=== PATIENT | male | born 1945 | race Caucasian/White ===

== ENCOUNTER 2018-07-15 11:46 | Inpatient (IN) | payer MEDICARE, OTHER ==
[2018-07-15] MEDS: Ondansetron ODT 4 MG TAB SL PRN (13:43)
[2018-07-15] MEDS ORDERED: Acetaminophen 325 MG TAB PO PRN (14:58)
[2018-07-15] MEDS ORDERED: Zolpidem Tartrate 5 MG TAB PO PRN (14:58)
[2018-07-15] MEDS ORDERED: Dextrose 5% in Water 1,000 ML IV PRN (17:07)
[2018-07-15] MEDS ORDERED: Dextrose 50% Abboject 50 ML SYRINGE SLOW IVP PRN (17:07)
[2018-07-15] MEDS: Aspirin 81 mg Enteric Coated Tablet PO SCH (21:12)
[2018-07-15] MEDS: Ascorbic Acid 500 mg Chewable Tablet PO SCH (21:12)
[2018-07-15] MEDS: Carvedilol 12.5 MG TAB PO SCH (21:13)
[2018-07-15] MEDS: Famotidine 20 MG TAB PO SCH (21:13)
[2018-07-15] MEDS: Timolol 0.5% Ophth Soln 5 ml Bottle EA EYE SCH (21:16)
[2018-07-15] MEDS: Brimonidine Tartrate 0.2% Ophth Soln 5 ml Bottle EA EYE SCH (21:17)
[2018-07-16] MEDS: Carvedilol 12.5 MG TAB PO SCH ×2 (08:30→20:36)
[2018-07-16] MEDS: Amlodipine 5 MG TAB PO SCH (08:30)
[2018-07-16] MEDS: Losartan 25 MG TAB PO SCH (08:31)
[2018-07-16] MEDS: Brimonidine Tartrate 0.2% Ophth Soln 5 ml Bottle EA EYE SCH ×2 (08:32→20:36)
[2018-07-16] MEDS: Aspirin 81 mg Enteric Coated Tablet PO SCH ×2 (08:32→20:36)
[2018-07-16] MEDS: metFORMIN 500 MG TAB PO SCH (08:32)
[2018-07-16] MEDS: Timolol 0.5% Ophth Soln 5 ml Bottle EA EYE SCH ×2 (08:33→20:36)
[2018-07-16] MEDS: HYDROcodone/Acetaminophen 5/325 mg Tablet PO PRN ×2 (08:34→15:19)
[2018-07-16] MEDS ORDERED: Atorvastatin Calcium 10 MG TAB PO SCH (09:00)
[2018-07-16] MEDS: Famotidine 20 MG TAB PO SCH ×2 (10:39→10:40)
[2018-07-16] MEDS: Ascorbic Acid 500 mg Chewable Tablet PO SCH (20:36)
[2018-07-17] MEDS: HYDROcodone/Acetaminophen 5/325 mg Tablet PO PRN ×4 (01:39→23:24)
[2018-07-17] MEDS: Brimonidine Tartrate 0.2% Ophth Soln 5 ml Bottle EA EYE SCH ×2 (08:05→20:47)
[2018-07-17] MEDS: Amlodipine 5 MG TAB PO SCH (08:06)
[2018-07-17] MEDS: Aspirin 81 mg Enteric Coated Tablet PO SCH ×2 (08:06→20:47)
[2018-07-17] MEDS: Timolol 0.5% Ophth Soln 5 ml Bottle EA EYE SCH ×2 (08:07→20:47)
[2018-07-17] MEDS: metFORMIN 500 MG TAB PO SCH (08:07)
[2018-07-17] MEDS: Famotidine 20 MG TAB PO SCH (08:07)
[2018-07-17] MEDS: Losartan 25 MG TAB PO SCH (11:01)
[2018-07-17] MEDS: Carvedilol 12.5 MG TAB PO SCH (11:01)
[2018-07-17] MEDS: Ondansetron ODT 4 MG TAB SL PRN (12:51)
--- NOTE | 2018-07-17 12:59 | HP ---
PRIMARY CARE PHYSICIAN: Moose Del Castillo MD REASON FOR ADMISSION: For skilled rehabilitation at [facility], status post left total knee replacement. HISTORY OF PRESENT ILLNESS: Mr. Mitchell Ortiz is a 73-year-old male with a medical history of diabetes type 2, hypertension, hyperlipidemia, psoriatic arthritis, polycythemia, and degenerative joint disease. The patient came in for an elective total knee replacement on July 12, 2018. Procedure was done by Dr. Elizondo without complications. The patient immediately was admitted for medical management and physical therapy. The patient tolerated the procedure well. His pain was controlled with appropriate pain medications in the hospital. He does have diabetes and his sugars were also well managed. The patient was put on SCDs for DVT prophylaxis, but unfortunately this caused some skin irritation and this was changed to aspirin 81 mg twice a day. The patient was subsequently transferred to [facility] in [place] for skilled rehabilitation and continuation of physical therapy. Upon evaluation of the patient today, he denies any concerns. He states the drive was a little bit stressful and he did have some nausea when I was evaluating him. He states the pain is well controlled. He was given pain medicine prior to discharge from [facility] in [place]. The patient denies any abdominal pain. He denies any constipation since he had a bowel movement this morning. He denies any chest pain, dizziness, or shortness of breath. PAST MEDICAL HISTORY: 1. Diabetes type 2, on metformin. 2. Hypertension. 3. Hyperlipidemia. 4. Polycythemia, followed at a cancer center with intermittent phlebotomy. 5. Psoriatic arthritis. PAST SURGICAL HISTORY: 1. Laparoscopic cholecystectomy. 2. Left pinky toe surgery. 3. Cystoscopy of the bladder with biopsy. 4. Trigger finger release to the left hand. 5. Left first and second toe resection and repair due to trauma. SOCIAL HISTORY: The patient is . He has 4 children. His son and [id number] are very involved with the care. He lives with his daughter. He is a previous smoker, quit in 1990. He rarely uses alcohol and denies any illicit drug use. FAMILY HISTORY: Mother of breast cancer. Father of stroke. ALLERGIES: PENICILLIN, WHICH CAUSES RASH. CODE STATUS: The patient is a full code. MEDICATIONS: 1. Medrol 4 mg daily. 2. Amlodipine 2.5 daily. 3. Vitamin C 500 daily. 4. Aspirin 81 mg b.i.d. 5. Lipitor 10 mg daily. 6. Coreg 12.5 b.i.d. 7. Famotidine 10 mg daily. 8. Cozaar 50 mg daily. 9. Metformin 500 mg daily. 10. Timolol 0.5 ophthalmic b.i.d. 11. Brimonidine tartrate one drop in each eye b.i.d. REVIEW OF SYSTEMS: CONSTITUTIONAL: No fever or chills. No weight changes. EYES: No double vision or blurry vision. ENT: No congestion, drainage, or sore throat. CARDIOVASCULAR: No chest pain or palpitations. PULMONARY: No cough, wheezing, or shortness of breath. GASTROINTESTINAL: Complains of some nausea. No diarrhea, abdominal pain, or constipation. GENITOURINARY: No dysuria or hematuria. MUSCULOSKELETAL: Some arthritic pains to the left knee. SKIN: No rashes or lesions, but does have some superficial bruising and irritation from SCDs to the lower leg. NEUROLOGIC: No numbness, tingling, or focal weakness. PHYSICAL EXAMINATION: VITAL SIGNS: Temperature 97.9, pulse 84, respirations 18, blood pressure 108/70 , and O2 saturation 96% on room air. GENERAL: The patient is alert, awake, and oriented x3. Obese white male, very pleasant. HEENT: Pupils are round, equal, and reactive to light. Oropharynx is clear without lesions. Moist oral mucous membranes. NECK: Supple. No JVD. No thyroid nodules or enlargement. HEART: Regular rate and rhythm. No murmurs or rubs. LUNGS: Clear to auscultation bilaterally. No wheezing or crackles. ABDOMEN: Positive bowel sounds. Soft and nontender. Obese. EXTREMITIES: No clubbing or cyanosis. He has a dressing over his left knee all the way down to the mid left lower leg. Dressing is clean, dry, and intact. SKIN: Irritation and superficial bruises/excoriation like brasher to the left leg. Left leg with +1 edema. NEUROLOGIC: Intact sensation in all extremities. No droop. Good strength in all extremities. PSYCHIATRIC: Alert, awake, and oriented x3. Normal mood and affect. ASSESSMENT AND PLAN: This is a 73-year-old male with a history of hypertension, diabetes, status post left total knee arthroplasty, requiring skilled rehabilitation and inpatient physical therapy and rehabilitation. The patient has been admitted to [facility] for skilled rehabilitation and gait strengthening. We will consult Physical Therapy for strengthening in order to gain modified independence with gait and Occupational Therapy to help with activities of daily living. The patient will follow up with Dr. Elizondo, orthopedic surgeon. We will place the patient on aspirin b.i.d. for deep venous thrombosis prophylaxis. We will encourage ambulation with physical therapy. We will place the patient on Pepcid b.i.d. for gastrointestinal prophylaxis. We will treat pain with [place] as needed. We will give the patient Zofran sublingual for nausea. We will resume the patient's home medications. ESTIMATED LENGTH OF STAY: 2 to 3 weeks. DISPOSITION: Home. Job ID: [id number] [facility] [place] [facility]
[2018-07-17] MEDS: Ascorbic Acid 500 mg Chewable Tablet PO SCH (20:46)
[2018-07-17] MEDS: Atorvastatin Calcium 10 MG TAB PO SCH (20:47)
[2018-07-18] MEDS: HYDROcodone/Acetaminophen 5/325 mg Tablet PO PRN ×3 (09:32→21:22)
[2018-07-18] MEDS: Famotidine 20 MG TAB PO SCH (09:33)
[2018-07-18] MEDS: Timolol 0.5% Ophth Soln 5 ml Bottle EA EYE SCH ×2 (09:33→21:22)
[2018-07-18] MEDS: Brimonidine Tartrate 0.2% Ophth Soln 5 ml Bottle EA EYE SCH ×2 (09:33→21:20)
[2018-07-18] MEDS: metFORMIN 500 MG TAB PO SCH (09:33)
[2018-07-18] MEDS: Aspirin 81 mg Enteric Coated Tablet PO SCH ×2 (09:33→21:21)
[2018-07-18] MEDS: Ascorbic Acid 500 mg Chewable Tablet PO SCH (21:21)
[2018-07-18] MEDS: Atorvastatin Calcium 10 MG TAB PO SCH (21:21)
[2018-07-18] MEDS: Carvedilol 12.5 MG TAB PO SCH (21:21)
[2018-07-19] MEDS: metFORMIN 500 MG TAB PO SCH (08:49)
[2018-07-19] MEDS: Amlodipine 5 MG TAB PO SCH (08:50)
[2018-07-19] MEDS: Losartan 25 MG TAB PO SCH (08:50)
[2018-07-19] MEDS: Aspirin 81 mg Enteric Coated Tablet PO SCH ×2 (08:50→20:39)
[2018-07-19] MEDS: Famotidine 20 MG TAB PO SCH (08:50)
[2018-07-19] MEDS: Brimonidine Tartrate 0.2% Ophth Soln 5 ml Bottle EA EYE SCH ×2 (08:51→20:40)
[2018-07-19] MEDS: Timolol 0.5% Ophth Soln 5 ml Bottle EA EYE SCH ×2 (08:51→20:40)
[2018-07-19] MEDS: Carvedilol 12.5 MG TAB PO SCH ×2 (08:51→20:40)
[2018-07-19] MEDS: HYDROcodone/Acetaminophen 5/325 mg Tablet PO PRN ×2 (13:26→19:11)
[2018-07-19] MEDS: Ascorbic Acid 500 mg Chewable Tablet PO SCH (20:39)
[2018-07-19] MEDS: Atorvastatin Calcium 10 MG TAB PO SCH (20:40)
[2018-07-20] MEDS: HYDROcodone/Acetaminophen 5/325 mg Tablet PO PRN ×4 (01:46→19:52)
[2018-07-20] MEDS: Senokot S 8.6-50 MG TAB PO PRN ×2 (01:49→19:53)
[2018-07-20] MEDS: metFORMIN 500 MG TAB PO SCH (08:30)
[2018-07-20] MEDS: Brimonidine Tartrate 0.2% Ophth Soln 5 ml Bottle EA EYE SCH ×2 (08:30→20:46)
[2018-07-20] MEDS: Carvedilol 12.5 MG TAB PO SCH ×2 (08:30→20:46)
[2018-07-20] MEDS: Timolol 0.5% Ophth Soln 5 ml Bottle EA EYE SCH ×2 (08:31→20:46)
[2018-07-20] MEDS: Famotidine 20 MG TAB PO SCH (08:31)
[2018-07-20] MEDS: Aspirin 81 mg Enteric Coated Tablet PO SCH ×2 (08:32→20:46)
[2018-07-20] MEDS: Amlodipine 5 MG TAB PO SCH (08:37)
[2018-07-20] MEDS: Losartan 25 MG TAB PO SCH (08:38)
[2018-07-20] MEDS: Atorvastatin Calcium 10 MG TAB PO SCH (20:46)
[2018-07-20] MEDS: Ascorbic Acid 500 mg Chewable Tablet PO SCH (20:46)
[2018-07-21] MEDS: metFORMIN 500 MG TAB PO SCH (07:41)
[2018-07-21] MEDS: HYDROcodone/Acetaminophen 5/325 mg Tablet PO PRN ×2 (07:41→13:06)
[2018-07-21] MEDS: Carvedilol 12.5 MG TAB PO SCH ×2 (07:41→20:21)
[2018-07-21] MEDS: Aspirin 81 mg Enteric Coated Tablet PO SCH ×2 (07:42→20:21)
[2018-07-21] MEDS: Timolol 0.5% Ophth Soln 5 ml Bottle EA EYE SCH ×2 (07:42→20:21)
[2018-07-21] MEDS: Brimonidine Tartrate 0.2% Ophth Soln 5 ml Bottle EA EYE SCH ×2 (07:42→20:21)
[2018-07-21] MEDS: Famotidine 20 MG TAB PO SCH (07:42)
[2018-07-21] MEDS: Ondansetron ODT 4 MG TAB SL PRN (13:07)
[2018-07-21] MEDS: Atorvastatin Calcium 10 MG TAB PO SCH (20:21)
[2018-07-21] MEDS: Ascorbic Acid 500 mg Chewable Tablet PO SCH (20:21)
[2018-07-22] MEDS: Famotidine 20 MG TAB PO SCH (09:04)
[2018-07-22] MEDS: Timolol 0.5% Ophth Soln 5 ml Bottle EA EYE SCH ×2 (09:04→20:12)
[2018-07-22] MEDS: Brimonidine Tartrate 0.2% Ophth Soln 5 ml Bottle EA EYE SCH ×2 (09:04→20:12)
[2018-07-22] MEDS: Carvedilol 12.5 MG TAB PO SCH ×2 (09:04→20:12)
[2018-07-22] MEDS: Aspirin 81 mg Enteric Coated Tablet PO SCH ×2 (09:04→20:12)
[2018-07-22] MEDS: metFORMIN 500 MG TAB PO SCH (09:04)
[2018-07-22] MEDS: HYDROcodone/Acetaminophen 5/325 mg Tablet PO PRN ×2 (09:10→19:19)
[2018-07-22] MEDS ORDERED: Acetaminophen 325 MG TAB PO PRN (10:43)
[2018-07-22] MEDS: Atorvastatin Calcium 10 MG TAB PO SCH (20:12)
[2018-07-22] MEDS: Ascorbic Acid 500 mg Chewable Tablet PO SCH (20:12)
[2018-07-22] MEDS: Senokot S 8.6-50 MG TAB PO PRN (20:18)
[2018-07-23] MEDS: HYDROcodone/Acetaminophen 5/325 mg Tablet PO PRN ×2 (05:28→17:33)
[2018-07-23] MEDS: Famotidine 20 MG TAB PO SCH (08:26)
[2018-07-23] MEDS: Carvedilol 12.5 MG TAB PO SCH ×2 (08:26→20:39)
[2018-07-23] MEDS: Aspirin 81 mg Enteric Coated Tablet PO SCH ×2 (08:26→20:39)
[2018-07-23] MEDS: Brimonidine Tartrate 0.2% Ophth Soln 5 ml Bottle EA EYE SCH ×2 (08:27→20:39)
[2018-07-23] MEDS: metFORMIN 500 MG TAB PO SCH (08:27)
[2018-07-23] MEDS: Timolol 0.5% Ophth Soln 5 ml Bottle EA EYE SCH ×2 (08:27→20:39)
[2018-07-23] MEDS: Senokot S 8.6-50 MG TAB PO PRN (20:39)
[2018-07-23] MEDS: Atorvastatin Calcium 10 MG TAB PO SCH (20:39)
[2018-07-23] MEDS: Ascorbic Acid 500 mg Chewable Tablet PO SCH (20:39)
[2018-07-24] MEDS ORDERED: HYDROcodone/Acetaminophen 5/325 mg Tablet PO PRN (03:11)
[2018-07-24] MEDS: Brimonidine Tartrate 0.2% Ophth Soln 5 ml Bottle EA EYE SCH ×2 (08:34→20:48)
[2018-07-24] MEDS: Timolol 0.5% Ophth Soln 5 ml Bottle EA EYE SCH ×2 (08:35→20:48)
[2018-07-24] MEDS: HYDROcodone/Acetaminophen 5/325 mg Tablet PO PRN ×2 (08:35→20:47)
[2018-07-24] MEDS: metFORMIN 500 MG TAB PO SCH (08:36)
[2018-07-24] MEDS: Senokot S 8.6-50 MG TAB PO PRN ×2 (08:36→20:47)
[2018-07-24] MEDS: Aspirin 81 mg Enteric Coated Tablet PO SCH ×2 (08:36→20:49)
[2018-07-24] MEDS: Famotidine 20 MG TAB PO SCH (08:36)
[2018-07-24] MEDS: Carvedilol 12.5 MG TAB PO SCH ×2 (08:36→20:49)
[2018-07-24] MEDS: Bisacodyl 5 MG TAB PO PRN (15:06)
[2018-07-24 19:05] VITALS: BMI 33.3
[2018-07-24] MEDS: Atorvastatin Calcium 10 MG TAB PO SCH (20:49)
[2018-07-24] MEDS: Ascorbic Acid 500 mg Chewable Tablet PO SCH (20:49)
[2018-07-25] MEDS: HYDROcodone/Acetaminophen 5/325 mg Tablet PO PRN ×2 (07:39→21:15)
[2018-07-25] MEDS: Brimonidine Tartrate 0.2% Ophth Soln 5 ml Bottle EA EYE SCH ×2 (08:17→21:07)
[2018-07-25] MEDS: metFORMIN 500 MG TAB PO SCH (08:18)
[2018-07-25] MEDS: Aspirin 81 mg Enteric Coated Tablet PO SCH ×2 (08:19→21:07)
[2018-07-25] MEDS: Timolol 0.5% Ophth Soln 5 ml Bottle EA EYE SCH ×2 (08:19→21:08)
[2018-07-25] MEDS: Famotidine 20 MG TAB PO SCH (08:19)
[2018-07-25] MEDS: Carvedilol 12.5 MG TAB PO SCH ×2 (08:19→21:07)
[2018-07-25] MEDS: Bisacodyl 5 MG TAB PO PRN (08:23)
[2018-07-25] MEDS: Ascorbic Acid 500 mg Chewable Tablet PO SCH (21:06)
[2018-07-25] MEDS: Atorvastatin Calcium 10 MG TAB PO SCH (21:07)
[2018-07-26] MEDS: Timolol 0.5% Ophth Soln 5 ml Bottle EA EYE SCH ×2 (08:13→20:43)
[2018-07-26] MEDS: Aspirin 81 mg Enteric Coated Tablet PO SCH ×2 (08:13→20:42)
[2018-07-26] MEDS: Famotidine 20 MG TAB PO SCH (08:13)
[2018-07-26] MEDS: Carvedilol 12.5 MG TAB PO SCH ×2 (08:13→20:42)
[2018-07-26] MEDS: Brimonidine Tartrate 0.2% Ophth Soln 5 ml Bottle EA EYE SCH ×2 (08:13→20:43)
[2018-07-26] MEDS: metFORMIN 500 MG TAB PO SCH (08:13)
[2018-07-26] MEDS: HYDROcodone/Acetaminophen 5/325 mg Tablet PO PRN (12:54)
[2018-07-26] MEDS: Atorvastatin Calcium 10 MG TAB PO SCH (20:41)
[2018-07-26] MEDS: Ascorbic Acid 500 mg Chewable Tablet PO SCH (20:42)
[2018-07-27] MEDS: HYDROcodone/Acetaminophen 5/325 mg Tablet PO PRN (03:14)
[2018-07-27] MEDS: Brimonidine Tartrate 0.2% Ophth Soln 5 ml Bottle EA EYE SCH (09:16)
[2018-07-27] MEDS: Aspirin 81 mg Enteric Coated Tablet PO SCH (09:16)
[2018-07-27] MEDS: Timolol 0.5% Ophth Soln 5 ml Bottle EA EYE SCH (09:16)
[2018-07-27] MEDS: metFORMIN 500 MG TAB PO SCH (09:16)
[2018-07-27] MEDS: Carvedilol 12.5 MG TAB PO SCH (09:17)
[2018-07-27] MEDS: Famotidine 20 MG TAB PO SCH (09:17)
[2018-07-27 09:48] VITALS: BP 125/70; TEMP 96.5
--- NOTE | 2018-07-28 06:10 | DIS ---
DATE OF ADMISSION: 07/15/2018 DATE OF DISCHARGE: 07/27/2018 ADMITTING AND DISCHARGING PHYSICIAN: Bakari Prieto MD PRIMARY CARE PHYSICIAN: Moose Del Castillo MD DISCHARGE DIAGNOSES: 1. Physical debility. 2. Status post left total knee arthroplasty. 3. Hypotension. 4. Diabetes type 2. 5. Psoriatic arthritis. 6. Stage II decubitus ulcer. DISCHARGE MEDICATIONS: 1. Filley 5/325 q.6 hours p.r.n. pain, #30. 2. Metformin 500 daily. 3. Coreg 12.5 b.i.d. 4. Lipitor 10 daily. 5. Aspirin 81 mg b.i.d. 6. Vitamin C 500 daily. 7. Medrol 4 mg daily. 8. Famotidine 10 mg daily. 9. Timolol 0.5 ophthalmic b.i.d. 10. Brimonidine tartrate 1 drop in each eye b.i.d. FOLLOWUP: The patient to follow up with primary care physician within 1 week, Dr. Moose Del Castillo; to follow up with Dr. Elizondo on August 03, 2018 at 8:45 a.m. DISCHARGE INSTRUCTIONS: The patient to resume outpatient physical therapy at [facility]. The patient to ambulate with walker at all times. Daily wound care to buttock stage II ulcer. The patient encouraged to turn q.2 and daily dressing to left knee incision. CODE STATUS: Full code. BRIEF HOSPITAL COURSE: Mr. Lee Medrano is a very pleasant 73-year- old male, who had an elective total knee replacement on July 12, 2018, done by Dr. Elizondo without complications. He was admitted to [facility] in [place] for physical and medical management, and the patient tolerated this well and subsequently was transferred to [facility] on July 15. The patient, during hospitalization in [place], had skin irritation due to SCD placed on his lower extremities; this was discontinued and while he was in the hospital here in [place], the irritation improved nicely. The patient was able to participate in physical therapy. He was able to ambulate with his walker with no issues. The patient and family wanted to be discharged home and he had progressed to have PT and was able on day of discharge to walk with about 400 feet with his rolling walker. During hospitalization, the patient had episodes of hypotension. During admission, he was on Cozaar, amlodipine, and Coreg. His medications were adjusted. The amlodipine and Cozaar were discontinued and he was just left with the Coreg which stabilized his blood pressure. The patient was notified of this and family notified to keep a log of his blood pressure and follow up with his PCP within 1 week. The patient was also noted to have a stage II sacral ulcer and this was dressed appropriately daily with some ointment and recommended to turn q.2 while in bed. Overall, the patient improved and it was deemed appropriate for discharge home with family members and continuation of physical therapy as an outpatient. VITAL SIGNS ON DATE OF DISCHARGE: Temperature 96.5, pulse 71, respirations 20, O2 saturation 95% on room air, blood pressure 125/70. The patient is a full code. Job ID: [id number] MTDD
== END 2018-07-27 12:49 | disposition home or self-care (01) | DRG 561 ==
LOC: MADMS 11:46
PROVIDERS: ADMIT Family Medicine; ATTEND Family Medicine
DX: Z47.1 Aftercare following joint replacement surgery (principal); E11.9 Type 2 diabetes mellitus without complications; I10 Essential (primary) hypertension; E78.5 Hyperlipidemia, unspecified; R53.81 Other malaise; L89.312 Pressure ulcer of right buttock, stage 2; I95.9 Hypotension, unspecified; L40.50 Arthropathic psoriasis, unspecified; Z96.652 Presence of left artificial knee joint; Z90.49 Acquired absence of other specified parts of digestive tract; Z98.890 Other specified postprocedural states; Z87.891 Personal history of nicotine dependence; Z88.0 Allergy status to penicillin; Z79.82 Long term (current) use of aspirin; Z79.899 Other long term (current) drug therapy
CPT/HCPCS: 36416; Q0162